=== PATIENT | male | born 1960 | race Caucasian/White ===

== ENCOUNTER 2016-08-13 09:09 | Emergency (ER) | payer BC ==
[2016-08-13 10:18] VITALS: BP 104/67
--- NOTE | 2016-08-13 10:33 | UC ---
Respiratory Complaint HPI - HPI Summary HPI Summary: History of asthma, treated for bronchitis with doxycycline and prednisone 3 weeks ago with good resolution. Yesterday had sudden onset of malaise, chills and rigors. Using albuterol, about 4 times since yesterday, last at 0400 this morning. Chest feels sore and tight, headache. Has had a flu shot, but son was dx'd with flu 2 days ago. - History of Current Complaint Chief Complaint: UCGeneralIllness Stated Complaint: FEVER,HEADACHE,BODY ACHES Time Seen by Provider: 08/13/16 10:24 Hx Obtained From: Patient, Family/Sales And Marketing Engineer - here with his . Onset/Duration: Sudden Onset, Lasting Days - 2 Timing: Constant Severity Initially: Moderate Severity Currently: Moderate Character: Cough: Nonproductive Aggravating Factors: Deep Breaths, Recumbent Position Alleviating Factors: Bronchodilator Associated Signs And Symptoms: Positive: Dyspnea, Fever, Wheezing - Risk Factors Pulmonary Embolism Risk Factors: Negative Cardiac Risk Factors: Prior [place] Pseudomonas Risk Factors: Negative Tuberculosis Risk Factors: Negative - Allergies/Home Medications Allergies/Adverse Reactions: Allergies Allergy/AdvReac Type Severity Reaction Status Date / Time No Known Allergies Allergy Verified 06/24/16 12:33 Home Medications: Home Medications Acetaminophen 1,000 mg PO Q4HR PRN 08/13/16 [History Confirmed 08/13/16] PMH/Surg Hx/FS Hx/Imm Hx Endocrine History Of: Denies: Diabetes, Thyroid Disease Cardiovascular History Of: Reports: Cardiac Disorders - [place], a-fib, Hypertension , Atrial Fibrillation - NEW DX LAST YR, ON XRELTO Denies: Pacemaker/ICD Respiratory History Of: Reports: COPD, Asthma - Surgical History Surgical History: Yes Surgery Procedure, Year, and Place: L-5/S1 22 YRS AGO=DISECTOMY CARDIAC VPIGX=1104 QUAD MDMVNY=[id number] RT KNEE SURGERY CARDIAC OBLATION= July 2015, and January-2015, June-2016. - Family History Known Family History: Negative: Cardiac Disease, Hypertension, Diabetes - Social History Occupation: Employed Full-time Lives: With Family Alcohol Use: None Substance Use Type: None Smoking Status (MU): Never Smoked Tobacco - Immunization History Most Recent Influenza Vaccination: 02/2016 Review of Systems Constitutional: Fever, Fatigue Skin: Negative Eyes: Negative ENT: Sore Throat Respiratory: Shortness Of Breath, Cough Cardiovascular: Negative Gastrointestinal: Diarrhea - loose this morning. Genitourinary: Negative Motor: Negative Neurovascular: Negative Musculoskeletal: Myalgia Neurological: Negative Psychological: Negative All Other Systems Reviewed And Are Negative: Yes Physical Exam Triage Information Reviewed: Yes Appearance: Ill-Appearing, Obese Vital Signs: Initial Vital Signs Temp 98.6 F 08/13/16 10:08 Pulse 77 08/13/16 10:08 Resp 16 08/13/16 10:08 BP 104/67 08/13/16 10:08 Pulse Ox 99 08/13/16 10:08 Vital Signs Reviewed: Yes Eyes: Positive: Conjunctiva Clear ENT: Positive: Pharynx normal, TMs normal Neck: Positive: Supple, Nontender, No Lymphadenopathy Respiratory: Positive: Decreased breath sounds, Wheezing - both lung rodriguez, prolonged expiration Cardiovascular: Positive: No Murmur Musculoskeletal Exam: Normal Neurological: Positive: Alert, Muscle Tone Normal Psychological Exam: Normal Skin Exam: Normal UC Diagnostic Evaluation - Laboratory O2 Sat by Pulse Oximetry: 99 Diagnostic Studies Comment: negative rapid flu - Radiology Xray Interpretation: No Acute Changes Radiology Interpretation Completed By: ED Physician, Radiologist Respiratory Course/Dx - Course Course Of Treatment: tamiflu given positive exposure. Prednisone in reserve in case breathing worsens. - Differential Dx/Diagnosis Differential Diagnosis/HQI/PQRI: Aspiration, Asthma, Bronchitis, Influenza Provider Diagnoses: possible influenza or other viral illness. asthma exacerbation Discharge - Discharge Plan Condition: Stable Disposition: HOME Prescriptions: Oseltamivir CAP* [Tamiflu CAP*] 75 mg PO BID #10 cap Prednisone [Deltasone] 20 mg PO BID #10 tab Patient Education Materials: Asthma (ED) Additional Instructions: Although the test is negative, you possibly have flu. Given the positive exposure, and your health history, you have been prescribed Tamiflu. You have a back up prescription for prednisone to begin if you continue to wheeze and feel short of breath. Follow up if you have worsening shortness of breath or rapid heart rate.
--- NOTE | 2016-08-13 11:26 | RAD ---
HISTORY: Cough, fever, wheeze COMPARISONS: July 12, 2015 VIEWS: 2: Frontal dual-energy and lateral views of the chest. FINDINGS: CARDIOMEDIASTINAL SILHOUETTE: The cardiomediastinal silhouette is normal. KATIE: The katie are normal. PLEURA: The costophrenic angles are sharp. No pleural abnormalities are noted. LUNG PARENCHYMA: The lungs are clear. ABDOMEN: The upper abdomen is clear. There is no subphrenic gas. BONES AND SOFT TISSUES: The patient is status post median sternotomy. Surgical clips are noted in the mediastinum OTHER: None. IMPRESSION: NO ACTIVE CARDIOPULMONARY DISEASE.
== END 2016-08-13 11:52 | disposition home or self-care (01) ==
LOC: UCCORT 09:09
DX: J44.9 Chronic obstructive pulmonary disease, unspecified (principal); J45.901 Unspecified asthma with (acute) exacerbation; B99.8 Other infectious disease; I48.2 Chronic atrial fibrillation; Z79.01 Long term (current) use of anticoagulants; R50.9 Fever, unspecified; R53.83 Other fatigue; I25.2 Old myocardial infarction; E07.9 Disorder of thyroid, unspecified; I10 Essential (primary) hypertension
CPT/HCPCS: 71020; 87502; 99212; G0463

== ENCOUNTER 2016-10-15 19:13 | Observation (INO) | payer BC ==
[2016-10-15 20:13] LABS: Hematocrit 45 % (42-52); Mean Corpuscular HGB Conc 34 g/dl (31-36); Mean Corpuscular Hemoglobin 32 pg (27-31); Mean Corpuscular Volume 96 fL (80-94); Mean Platelet Volume 8 um3 (7.4-10.4); Red Blood Count 4.66 10^6/ul (4.0-5.4); Red Cell Distribution Width 13 % (10.5-15); White Blood Count 7.4 10^3/ul (3.5-10.8)
[2016-10-15 20:14] LABS: Comments Flag Yes
[2016-10-15 20:15] LABS: Add Diff/Slide Review? Slide Review Added
[2016-10-15 20:28] LABS: Albumin 3.8 g/dL (3.2-5.2); BUN/Creatinine Ratio 14.9 (8-20); Calcium 8.7 mg/dL (8.6-10.3); EGFR African American 98.3 (>60); EGFR Non-African American 76.4 (>60); Globulin 2.4 g/dL (2-4); Potassium 4.1 mmol/L (3.5-5.0); Total Bilirubin 0.6 mg/dL (0.2-1.0); Total Protein 6.2 g/dL (6.4-8.9)
--- NOTE | 2016-10-15 21:26 | RAD ---
Indication: Vertigo. Patient on anticoagulants. CT of the brain was performed without IV contrast. Ventricular structures are midline. No midline shift is noted. The extraction spaces are unremarkable. There is no evidence of intracranial mass or hemorrhage. No other high or low density lesions are identified. Mastoid air cells and paranasal sinuses are otherwise unremarkable. IMPRESSION: No intracranial mass or hemorrhage is present.
[2016-10-15] MEDS ORDERED: NS 0.9% 1000 ML* 1,000 ML IV ONE (21:41)
[2016-10-15] MEDS ORDERED: Meclizine TAB* 12.5 MG PO ONE (21:41)
[2016-10-15] MEDS ORDERED: Aspirin TAB* 325 MG PO ONE (21:41)
[2016-10-15] MEDS ORDERED: Ondansetron INJ* 2 MG/ML VIAL IV PRN (23:13)
[2016-10-16] MEDS: Heparin VIAL(*) 5000 UNITS/ML VIAL (FIVE THOUSAND) SUBCUT SCH ×2 (05:27→13:21)
[2016-10-16] MEDS: Meclizine TAB* 12.5 MG PO SCH ×2 (05:28→13:18)
[2016-10-16 08:40] VITALS: BP 120/76
[2016-10-16] MEDS ORDERED: Metoprolol Succinate XL TAB* 25 MG PO SCH (09:00)
[2016-10-16] MEDS ORDERED: Aspirin Low Dose CHEW TAB* 81 MG PO SCH (09:00)
[2016-10-16] MEDS ORDERED: Atorvastatin* 80 MG TAB PO SCH (09:00)
[2016-10-16] MEDS ORDERED: Fluticasone NASAL SPRAY 50MCG* 16 gm SPRAY BTL BOTH NARES SCH (09:00)
--- NOTE | 2016-10-16 12:26 | HP ---
HISTORY AND PHYSICAL: DATE OF ADMISSION: 10/15/16 CHIEF COMPLAINT: Dizziness. HISTORY OF PRESENT ILLNESS: The patient is a 56-year-old gentleman, who started traveling from [place] yesterday to his home today. He stopped in [place] overnight. He said it was a normal drive with no complaints, but when he got out of his truck today at about 2 p.m., he felt somewhat dizzy. He said actually the room felt like it was spinning. He felt unstable when trying to walk. He felt his stomach was off too and felt hot and cold. He was off balance. He has had vertigo before but this was much worse. He felt quite queasy and he actually had vomiting in our parking lot . He had no chest pain, no shortness of breath, no palpitations, or headache. In the ED, the patient looked somewhat improved, but says the room was still spinning whenever he moves his head. PAST MEDICAL HISTORY: Significant for recent cardiac ablation for atrial fib, this is his third time and successful; atrial fibrillation; myocardial infarction, 2001; CABG, 4 vessels, in 2008; hyperlipidemia; asthma; hypertension ; right bundle branch block; environmental allergies. PAST SURGICAL HISTORY: Significant for CABG as noted, back surgery, knee surgery. CURRENT MEDICATIONS: Include: 1. Crestor 40 mg daily. 2. Metoprolol succinate 25 mg daily. 3. Aspirin 81 mg daily. 4. Flonase nasal spray. ALLERGIES: He has no known drug allergies. FAMILY HISTORY: Father, diabetes. SOCIAL HISTORY: No tobacco, alcohol, or recreational drug use. 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 He is . His , Whitney Nnace, is his healthcare proxy, her number is . He has 3 children. REVIEW OF SYSTEMS: A 14-point review of systems is completed with the patient. All pertinent positives and negatives are in the history of present illness, otherwise is negative. PHYSICAL EXAMINATION GENERAL: Pleasant gentleman, lying in bed, in no acute distress. VITAL SIGNS: Temperature 98 degrees, heart rate beats per minute, respiratory rate 16 breaths per minute, pulse ox 96%, blood pressure 136/83. HEENT: Normocephalic, atraumatic. Pupils equal, round, and reactive to light. Moist mucous membranes. NECK: Supple. No JVD, bruits, palpable thyroid, or lymphadenopathy. CHEST: Clear to auscultation and percussion bilaterally. CARDIOVASCULAR: S1, S2 appreciated. Regular rate and rhythm. ABDOMEN: Positive bowel sounds in all 4 quadrants. Soft, nontender, and nondistended. EXTREMITIES: No cyanosis, clubbing, or edema. +2 peripheral pulses bilaterally. NEURO: Alert and oriented x3. Moves all extremities. He had a positive Ingleside- Hallpike maneuver. SKIN: No rashes or abnormalities. DIAGNOSTIC STUDIES/LAB DATA: White count 7.4, hemoglobin 15.0, hematocrit 45, platelets 149. Sodium 139, potassium 4.1, chloride 108, CO2 26, BUN 15, creatinine 1.01, glucose 108. Troponin is 0. Brain CT shows no intracerebral mass or hemorrhage is present. EKG shows normal sinus rhythm at 64 beats per minute, normal axis, right bundle branch block. ASSESSMENT AND PLAN: 1. Dizziness/vertigo. I think this is probably benign positional vertigo especially the positive Ingleside-Hallpike maneuver; however, I will admit the patient under observation. We will get an MRI of the brain to ensure there is no evidence of cerebrovascular accident. I will give meclizine 25 q.8 hours. He may benefit from vestibular rehabilitation. 2. Coronary artery disease. This appears stable. Continue current regimen. 3. FEN. Regular diet. 4. DVT prophylaxis. Heparin subcu. 5. The patient is a full code. TIME SPENT: Over 75 minutes was spent on this H and P; more than 45 minutes of which was spent in direct [id number] contact with the patient in evaluation, physical exam, counseling, and coordination of care. CC: Dr. Keys* [id number]/[facility] #: [id number] MTDEben
--- NOTE | 2016-10-16 15:16 | RAD ---
HISTORY: Dizziness, Rule out stroke COMPARISONS: November 06, 2011, head CT dated October 15, 2016 TECHNIQUE: The following sequences were obtained of the head: Sagittal T1-weighted images, axial T2-weighted images, axial FLAIR images, axial susceptibility weighted images, axial T1-weighted images. Additionally, axial diffusion-weighted images were obtained with calculated apparent diffusion coefficients. FINDINGS: HEMORRHAGE/INFARCT: There is no hemorrhage or acute infarct. MASSES/SHIFT: There is no mass or shift. EXTRA-AXIAL SPACES/MENINGES: There are no extra-axial fluid collections. Incidentally noted is a small lipoma along the dorsal aspect of the right inferior colliculus. SULCI AND VENTRICLES: The sulci and ventricles are normal in size and position for the patient's stated age. CEREBRUM: There are no focal parenchymal abnormalities. BRAINSTEM: There are no focal parenchymal abnormalities. CEREBELLUM: There are no focal parenchymal abnormalities. The cerebellar tonsils are normal in size and position. SELLA: The sella is normal. PINEAL: The pineal region is clear. CP ANGLE/TEMPORAL BONES: The labyrinthine structures are grossly normal. VESSELS: Normal flow-voids are noted within the visualized vertebral vasculature. DIFFUSION ABNORMALITIES: There are no diffusion abnormalities. PARANASAL SINUSES/MASTOIDS: The paranasal sinuses are clear. ORBITS: The orbits are unremarkable. BONES AND SOFT TISSUE: No bone or soft tissue abnormalities are noted. OTHER: None IMPRESSION: UNREMARKABLE MRI OF THE BRAIN. NO RESTRICTED DIFFUSION TO SUGGEST ACUTE INFARCT
--- NOTE | 2016-10-17 06:58 | DS ---
DISCHARGE SUMMARY: DATE OF ADMISSION: 10/15/16 DATE OF DISCHARGE: 10/16/16 PRIMARY CARE PROVIDER: Kervin Keys MD DISCHARGING PROVIDER: CORY You SUPERVISING PHYSICIAN: Kya Lisa MD * (dictated by CORY You) PRIMARY DISCHARGE DIAGNOSIS: Vertigo. SECONDARY DISCHARGE DIAGNOSES: 1. History of atrial fibrillation, status post cardiac ablation, currently in sinus rhythm. 2. Coronary artery disease without evidence of acute coronary syndrome. 3. Hyperlipidemia. 4. Asthma without acute exacerbation. 5. Hypertension. DISCHARGE MEDICATIONS: 1. Aspirin 81 mg p.o. daily. 2. Flonase 50 mg mcg intranasally. 3. Metoprolol succinate 25 mg p.o. daily. 4. Meclizine 25 mg p.o. q.8 hours as needed for dizziness. 5. Crestor 40 mg p.o. daily. MEDICATION CHANGES: Start meclizine. HOSPITAL IMAGIN. CT of the brain, 10/15/16, shows no acute process. 2. MRI of the brain, 10/16/16, shows no acute process. 3. EKG shows a sinus rhythm with a right bundle branch block, unchanged from prior. HOSPITAL COURSE: This is a 56-year-old gentleman with history of coronary artery disease, status post acute OK in 2001, as well as a history of AFib requiring cardiac ablation x3 as well as hypertension, hyperlipidemia and asthma who presented to the emergency department with complaints of dizziness. The patient had just returned home from a very long drive from [place] and upon getting out of the car he was severely dizzy. His gait was impaired, he was nauseous and vomited once. He has had a prior episode of vertigo, but felt that the symptoms were more severe and prompted him to seek medical attention. Initial labs are fairly unremarkable. CBC within normal limits and comprehensive metabolic panel showed no acute abnormalities. Initial troponin, subsequent troponin both negative at 0.00. EKG demonstrated a sinus rhythm with a right bundle branch block. The patient was treated for suspected vertigo with meclizine and symptoms improved overnight. He underwent an MRI of his brain to evaluate for organic pathology that may be influencing his symptoms. MRI showed no acute pathology. DISPOSITION: The patient is being discharged to home with p.r.n. meclizine. Recommend resuming remainder of his home medications and close follow up with his primary care provider. CORY YOU CC: Kervin Keys MD * [id number]/[facility] #: [id number] MTDD
--- NOTE | 2016-10-17 08:32 | ED ---
I, Oh,Sosadiun, scribed for Lazarus Torres MD on 10/15/16 at 2051 . Dizziness - HPI Summary HPI Summary: This 56 y/o male presents to ED for acute "spinning" dizziness since 1400 PM this afternoon. Pt has been driving from [place] for the last 2 days, and was just getting out of the vehicle at the time of onset. Pt n/v when he got out of his vehicle. present at bedside reports pt has been sweating a lot yesterday in 90 F heat in [place]. Movement makes the dizziness worse. Negative CP, jaw pain, shoulder pain, neck pain, SOB, ear pain, or tinnitus. PMHx includes known vertigo, SVT, [place] s/p quadruple bypass at [place] in 2008, and a-fib s/p ablation. Pt states that this episode is more intense than his previous "dizzy spells". Primary care involves Dr. Bellamy as his regional property manager. Last stress test was done 3 weeks ago. Pt recently discontinued Xarelto about 2 weeks ago. - History Of Current Complaint Chief Complaint: EDDizziness Stated Complaint: DIZZINESS,VOMITING Time Seen by Provider: 10/15/16 19:51 Hx Obtained From: Patient, Family/Tick Sewer - present at bedside, Medical Records Timing: Constant Character: Room Spinning Aggravating Factor(s): Position Change, Change In Head Position Alleviating Factor(s): Nothing Associated Signs And Symptoms: Positive: Nausea, Vomiting. Negative: Tinnitus, Chest Pain, SOB, Fever - Allergies/Home Medications Allergies/Adverse Reactions: Allergies Allergy/AdvReac Type Severity Reaction Status Date / Time No Known Allergies Allergy Verified 06/24/16 12:33 Home Medications: Home Medications Aspirin 81 MG TAB 81 mg DAILY 10/15/16 [History Confirmed 10/15/16] Flonase NASAL SPRAY 50MCG* INTRANASAL DAILY 10/15/16 [History] Metoprolol Succinate XL TAB* 25 mg PO DAILY 10/15/16 [History Confirmed 10/15/16 ] PMH/Surg Hx/FS Hx/Imm Hx Endocrine/Hematology History: Denies: Hx Diabetes, Hx Thyroid Disease Cardiovascular History: Reports: Hx Atrial Fibrillation, Hx Hypertension Denies: Hx Pacemaker/ICD Respiratory History: Reports: Hx Asthma, Hx Chronic Obstructive Pulmonary Disease (COPD) Sensory History: Denies: Hx Hearing Aid Psychiatric History: Denies: Hx Panic Disorder - Surgical History Surgery Procedure, Year, and Place: L-5/S1 22 YRS AGO=DISECTOMY CARDIAC HCUBS=6553 QUAD NIDWRM=[id number] RT KNEE SURGERY CARDIAC OBLATION= July 2015, and January-2016, June-2016. - Immunization History Date of Tetanus Vaccine: Unk Date of Influenza Vaccine: 03/09 Infectious Disease History: No Infectious Disease History: Denies: Traveled Outside the [place] in Last 30 Days - Family History Known Family History: Negative: Cardiac Disease, Hypertension, Diabetes - Social History Alcohol Use: None Hx Substance Use: No Substance Use Type: Reports: None Hx Tobacco Use: No Smoking Status (MU): Never Smoked Tobacco Review of Systems Negative: Fever Negative: Other Positive: Other - "itchy nose and throat" secondary to seasonal allergies. Negative: Sore Throat Negative: Chest Pain Negative: Shortness Of Breath Positive: Vomiting, Nausea Negative: dysuria, hematuria Negative: Myalgia, Edema Neurological: Other - Positive for dizziness Negative: Numbness All Other Systems Reviewed And Are Negative: Yes Physical Exam - Summary Physical Exam Summary: Constitutional: Well-developed, Well-nourished, Alert. (-) Distressed Skin: Warm, Dry HENT: Eyes: Conjunctiva normal Neck: Musculoskeletal ROM normal neck. (-) JVD, (-) Stridor, (-) Tracheal deviation Cardio: Rhythm regular, rate normal, Heart sounds normal; Intact distal pulses; The pedal pulses are 2+ and symmetric. Radial pulses are 2+ and symmetric. (-) Murmur Pulmonary/Chest wall: Effort normal. (-) Respiratory distress, (-) Wheezes, (-) Rales Abd: Soft. (-) Tenderness, (-) Distension, (-) Guarding, (-) Rebound Musculoskeletal: (-) Edema Lymph: (-) Cervical adenopathy Neuro: Alert, Oriented x3, Strength normal, Cranial nerves II-XII are grossly intact. (+) Kallie-Hallpike bilat elicited bilat. (+) Rhomberg test. Unsteady gait. DTR unable to be elicited due to pt's cooperation. Psych: Mood and affect Normal Triage Information Reviewed: Yes Vital Signs On Initial Exam: Initial Vitals Temp Pulse Resp BP Pulse Ox 96.5 F 68 18 136/88 99 10/15/16 19:17 10/15/16 19:17 10/15/16 19:17 10/15/16 19:17 10/15/16 19:17 Vital Signs Reviewed: Yes - Barbara Coma Scale Coma Scale Total: 15 Diagnostics - Vital Signs Vital Signs Temp Pulse Resp BP Pulse Ox 10/15/16 20:09 96.5 F 66 16 150/87 96 10/15/16 19:17 96.5 F 68 18 136/88 99 - Laboratory Lab Results: Lab Results 10/15/16 10/15/16 10/15/16 Range/Units 20:02 20:02 20:02 WBC 7.4 (3.5-10.8) 10^3/ul RBC 4.66 (4.0-5.4) 10^6/ul Hgb 15.0 (14.0-18.0) g/dl Hct 45 (42-52) % MCV 96 H (80-94) fL MCH 32 H (27-31) pg MCHC 34 (31-36) g/dl RDW 13 (10.5-15) % Plt Count 149 L (150-450) 10^3/ul MPV 8 (7.4-10.4) um3 Neut % (Auto) 76.8 (38-83) % Lymph % (Auto) 10.2 L (25-47) % Spink % (Auto) 8.5 (1-9) % Eos % (Auto) 1.9 (0-6) % Baso % (Auto) 2.6 H (0-2) % Absolute Neuts (auto) 5.7 (1.5-7.7) 10^3/ul Absolute Lymphs (auto) 0.8 L (1.0-4.8) 10^3/ul Absolute Monos (auto) 0.6 (0-0.8) 10^3/ul Absolute Eos (auto) 0.1 (0-0.6) 10^3/ul Absolute Basos (auto) 0.2 (0-0.2) 10^3/ul Absolute Nucleated RBC 0 10^3/ul Nucleated RBC % 0 Sodium 139 (133-145) mmol/L Potassium 4.1 (3.5-5.0) mmol/L Chloride 108 (101-111) mmol/L Carbon Dioxide 26 (22-32) mmol/L Anion Gap 5 (2-11) mmol/L BUN 15 (6-24) mg/dL Creatinine 1.01 (0.67-1.17) mg/dL Est GFR ( Amer) 98.3 (>60) Est GFR (Non-Af Amer) 76.4 (>60) BUN/Creatinine Ratio 14.9 (8-20) Glucose 108 H (70-100) mg/dL Lactic Acid 0.8 (0.5-2.0) mmol/L Calcium 8.7 (8.6-10.3) mg/dL Total Bilirubin 0.60 (0.2-1.0) mg/dL AST 19 (13-39) U/L ALT 15 (7-52) U/L Alkaline Phosphatase 39 (34-104) U/L Troponin I 0.00 (<0.04) ng/mL Total Protein 6.2 L (6.4-8.9) g/dL Albumin 3.8 (3.2-5.2) g/dL Globulin 2.4 (2-4) g/dL Albumin/Globulin Ratio 1.6 (1-3) Result Diagrams: 10/15/16 20:02 10/15/16 20:02 Lab Statement: Any lab studies that have been ordered have been reviewed, and results considered in the medical decision making process. - CT Brain CT Interpretation: No Acute Changes CT Interpretation Completed By: Radiologist - EKG 1929 Cardiac Rate: NL - 64 bpm EKG Rhythm: Sinus Rhythm EKG Interpretation: RBBB Dizzy Course/Dx - Course Assessment/Plan: This 56 y/o male presents to ED for "spinning" dizziness since 1400 PM today. Positive n/v. Dizziness is worse with head movement and position change. Exam is non focal. PMHx includes cardiac dz such as [place] s/p quadruple bypass and afib. Pt recently discontined Xarelto 2 weeks ago. PMHx also includes vertigo, but pt states that this episode is different in a way that it is more severe than his usual episodes of dizziness. Brain CT is negative. Physical examination is noted nonfocal with bilat Min[place]-Hallpike examl, positive Rhomberg exam, and unsteady gait. Dr. Bermudez is consulted and recommends ASA, meclizine, admission, and MRI in morning. CVA is unlikely but is not r/o. Dr. Bermudez recommends admission, ASA, meclizine, and MRI in morning. - Diagnoses Provider Diagnoses: Vertigo - Provider Notifications Discussed Care Of Patient with: Dr. Bermudez (Neurologist) at [address] Bermudez (Neurologist) at [address] Romero (Hospitalist) at 2142 PM Instructed by Provider To: Admit As Inpatient Discharge - Discharge Plan Condition: Stable Disposition: ADMITTED TO [facility] documentation as recorded by the Charli rios Soohyun accurately reflects the service I personally performed and the decisions made by , Lazarus Torres MD.
== END 2016-10-16 17:12 | disposition home or self-care (01) ==
LOC: ED 19:13 → MEDTELE 23:21
PROVIDERS: ADMIT Internal Medicine; ATTEND Internal Medicine
DX: R42 Dizziness and giddiness (principal); I48.91 Unspecified atrial fibrillation; I25.10 Atherosclerotic heart disease of native coronary artery without angina pectoris; I10 Essential (primary) hypertension; E78.5 Hyperlipidemia, unspecified; J45.909 Unspecified asthma, uncomplicated; Z95.1 Presence of aortocoronary bypass graft; Z79.82 Long term (current) use of aspirin; Z79.899 Other long term (current) drug therapy; I25.2 Old myocardial infarction; I45.10 Unspecified right bundle-branch block
CPT/HCPCS: 36415; 70450; 70551; 80053; 83605; 84484; 85025; 87641; 93005; 96360; 96372; 99283; A9270-GY; G0378; J1644

== ENCOUNTER 2019-09-11 06:25 | Inpatient (IN) | payer BC ==
--- NOTE | 2019-09-04 11:20 | HP ---
AMENDED REPORT NOW INCLUDES DESIGNATED COSIGNER HISTORY AND PHYSICAL: DATE OF SURGERY: 09/11/19 DATE OF OFFICE VISIT: 09/01/19 SURGEON: Freda Andre MD * (DICTATED BY CORY LUU) PROCEDURE: Right total knee arthroplasty. CHIEF COMPLAINT: Right knee pain. HISTORY OF PRESENT ILLNESS: Mr. Nance is a 59-year-old gentleman with end- stage osteoarthritis of the right knee who failed conservative treatment and elected to proceed with a right total knee arthroplasty. PAST MEDICAL HISTORY: 1. Hypertension. 2. Coronary artery disease. 3. AFib. 4. High cholesterol. 5. Asthma. 6. History of an NM. PAST SURGICAL HISTORY: 1. Cardiac ablation x3. 2. CABG, stent placement. 3. Carpal tunnel release. 4. Right knee scope. 5. L5-S1 diskectomy. CURRENT MEDICATIONS: 1. Metoprolol 25 mg daily. 2. Rosuvastatin calcium 40 mg a day. 3. Cardia 120 mg daily. 4. Zetia 10 mg a day. 5. Aspirin 325 daily. 6. CoQ10. 7. Flonase twice a day as needed. 8. Advair Diskus as needed. ALLERGIES: No known drug allergies. FAMILY HISTORY: Denies. SOCIAL HISTORY: This is a 59-year-old gentleman who lives with his . He does not smoke. REVIEW OF SYSTEMS: A complete 14-point review of systems was reviewed with the patient and is all negative and noncontributory. He denies a history of DVT, PE , hepatitis, HIV, or anesthesia problems. PHYSICAL EXAMINATION GENERAL: He is well developed, well nourished, in no acute distress. VITAL SIGNS: He stands 68 inches tall, weighs 224 pounds, his blood pressure is 126/70, his heart rate is 72. HEENT: Normocephalic and atraumatic. NECK: Supple. No palpable lymph nodes. PULMONARY: The lungs are clear to auscultation bilaterally. CARDIO: Regular rate and rhythm. Strong S1, S2. ABDOMEN: Soft, nontender, and nondistended. NEUROLOGIC: He is alert and oriented x3. MUSCULOSKELETAL: Right lower extremity, the skin is intact. There is open wounds or abrasions. There is a moderate effusion of the right knee joint. Some tenderness along the medial and lateral joint line. There is a 15 degree valgus deformity. Range of motion is 15 to 110 degrees of flexion with patellofemoral crepitus. He is able to dorsiflex and plantarflex. He has 2+ dorsalis pedis pulse and intact sensation. ASSESSMENT AND PLAN: Mr. Nance is a 59-year-old gentleman with end- stage osteoarthritis of the right knee. He has failed conservative treatment and elected to proceed with a right total knee arthroplasty. The surgery is scheduled for 09/11/[address] Andre discussed the risks and benefits of the surgery at today's visit and all of his questions were answered. He will follow up with Dr. Andre 2 weeks after the surgery. CORY LUU [id number]/[facility] #: [id number] MTDD
[~2019-09-11 06:25] MED LIST: Buffered Lidocaine 1% SYRIN* 1 ML/SYRINGE INTRADERM ONE; Dexamethasone IV* 4 MG/ML 1 ML (4 MG) IV SLOW PU ONE; Famotidine IV* 10 MG/ML 2 ML (20 mg) IV ONE; Gabapentin CAP(*) 300 MG PO ONE; Lactated Ringers 1000 ML Bag* 1,000 ML IV SCH; celeCOXIB CAP* 200 MG PO ONE
[2019-09-11] MEDS ORDERED: Gabapentin CAP(*) 300 MG ONE (06:47)
[2019-09-11] MEDS ORDERED: Dexamethasone IV* 4 MG/ML 1 ML (4 MG) ONE (06:47)
[2019-09-11] MEDS ORDERED: celeCOXIB CAP* 200 MG ONE (06:48)
[2019-09-11] MEDS ORDERED: ceFAZolin 2 GM PREMIX in ORs 2 GM/50 ML BAG ONE (06:48)
[2019-09-11] MEDS ORDERED: Famotidine IV* 10 MG/ML 2 ML (20 mg) ONE (06:49)
[2019-09-11] MEDS ORDERED: fentaNYL* 50 MCG/ML 2 ML VIAL (100 MCG VIAL) ONE (07:08)
[2019-09-11] MEDS ORDERED: Midazolam* 1 MG/ML 5 ML VIAL (5 MG) ONE (07:08)
[2019-09-11] MEDS ORDERED: ROPIVACAINE 5 MG/ML 30 ML BTL (0.5%) ONE ×2 (07:09→07:23)
[2019-09-11] MEDS ORDERED: Naloxone* 0.4 MG/ML 1 ML VIAL IV PRN (07:56)
[2019-09-11] MEDS ORDERED: DiMENhydriNATE IV* 50 MG/ML VIAL IV PUSH PRN (07:56)
[2019-09-11] MEDS ORDERED: HYDROcodone/ACETAMIN 5-325 MG* 1 TAB PO PRN (07:56)
[2019-09-11] MEDS ORDERED: oxyCODONE/Acetamin 5/325 MG* TAB PO PRN (07:56)
[2019-09-11] MEDS ORDERED: fentaNYL* 50 MCG/ML 2 ML VIAL (100 MCG VIAL) IV PRN (07:56)
[2019-09-11] MEDS ORDERED: Bupivacaine 0.5% SDV PF* 30ML VIAL ONE (08:14)
[2019-09-11] MEDS ORDERED: Lidocaine 2% PF * 5 ML VIAL ONE (08:30)
[2019-09-11] MEDS ORDERED: Propofol* 500 MG/50 ML BTL ONE (08:30)
[2019-09-11] MEDS ORDERED: Ondansetron INJ* 2 MG/ML VIAL ONE (10:36)
[2019-09-11] MEDS ORDERED: Ondansetron ODT TAB* 4 MG PO PRN (11:11)
[2019-09-11] MEDS ORDERED: diPHENhydraMINE PO* 25 MG PO PRN (11:11)
[2019-09-11] MEDS ORDERED: Cyclobenzaprine TAB* 10 MG PO PRN (11:11)
[2019-09-11] MEDS ORDERED: Morphine INJ* 2 MG/ML 1 ML SYRINGE (TWO MG - NEW SYRINGE VERSION) IV PRN (11:11)
[2019-09-11] MEDS ORDERED: diPHENhydraMINE IV* 50 MG/ML 1 ml VIAL (BENADRYL) IV PRN (11:11)
[2019-09-11] MEDS ORDERED: Ondansetron TAB* 4 MG PO PRN (11:11)
[2019-09-11] MEDS ORDERED: Magnesium Hydroxide LIQ* 30 ML UDC PO PRN (11:11)
[2019-09-11] MEDS ORDERED: Ondansetron INJ* 2 MG/ML VIAL IV PRN (11:11)
[2019-09-11] MEDS ORDERED: Polyethylene Glycol 3350* 17 GM PACKET PO PRN (11:11)
[2019-09-11] MEDS ORDERED: traMADol TAB* 50 MG PO PRN (11:11)
[2019-09-11] MEDS ORDERED: Fluticasone-Salmeterol 250-50* DISKUS INH PRN (11:15)
[2019-09-11] MEDS: Lactated Ringers 1000 ML Bag* 1,000 ML IV SCH ×2 (13:00→23:14)
[2019-09-11] MEDS: oxyCODONE/Acetamin 5/325 MG* TAB PO PRN ×2 (14:40→19:04)
[2019-09-11] MEDS: Acetaminophen TAB* 325 MG PO SCH ×2 (14:41→22:05)
--- NOTE | 2019-09-11 16:02 | PN ---
Progress Note - Progress Note Date of Service: 09/11/19 Note: resting comfortably, OOB to chair, no significant complaints of pain, 2+DP pulse , able to DF/PF, intact sensation
[2019-09-11] MEDS: ceFAZolin 1 GM ADVAN(*) 1 GM in NS 0.9% 50 ML* 50 ML IVPB SCH (16:54)
--- NOTE | 2019-09-11 17:09 | CONS ---
CC: Dr. Keys; Dr. Bellamy * CONSULTATION REPORT: DATE OF CONSULT: 09/11/19 PRIMARY CARE PROVIDER: Dr. Keys. CLINICAL TRIAL HEAD: Dr. Bellamy. REQUESTING PROVIDER: Dr. Andre. REASON FOR CONSULT: Medical co-management. HISTORY OF PRESENT ILLNESS: Mr. Nance is a 59-year-old male who has a history of hypertension, coronary artery disease, atrial fibrillation, hyperlipidemia, and asthma, who underwent elective right total knee arthroplasty with Dr. Andre today. The patient is seen in his room. He states overall he is doing quite well. He states that he feels excellent. He does note that he is having some moderate discomfort in the right knee at this point. He has been up and he has worked with physical therapy already. He describes discomfort in the knee as being a tightness or a pressure sensation. He has no other complaints at this time. He states that he has had no nausea, vomiting, and has tolerated eating. PAST MEDICAL HISTORY: 1. Hypertension. 2. Coronary artery disease. 3. Atrial fibrillation. 4. Hyperlipidemia. 5. Asthma. PAST SURGICAL HISTORY: 1. AFib ablation x3. 2. CABG. 3. Right carpal tunnel release. 4. Right knee arthroscopy. 5. L5-S1 diskectomy. 6. Left hand surgery. MEDICATIONS: 1. Metoprolol succinate 25 mg p.o. q.p.m. 2. Aspirin 325 mg p.o. q.p.m. 3. Diltiazem 240 mg p.o. q.p.m. 4. Zetia 10 mg p.o. q.p.m. 5. Flonase 2 squirts to each nostril daily p.r.n. allergies. 6. Advair 250/50 one puff inhaled daily p.r.n. shortness of breath. 7. Crestor 40 mg p.o. q.p.m. 8. CoQ10 200 mg p.o. q.p.m. ALLERGIES: No known drug allergies. FAMILY HISTORY: Mom is living, she is 79 and healthy. Dad is also living, he is also 79 and healthy. SOCIAL HISTORY: The patient is . He lives with his . He does not smoke. He drinks alcohol very rarely. He is a professor at [employer]. REVIEW OF SYSTEMS: A complete 11-system review of systems is obtained. Pertinent positives and negatives are as per HPI and otherwise negative. PHYSICAL EXAM: Blood pressure 124/86, pulse 71, respirations 16, temp 98.1, O2 sat 98% on room air. General: The patient is a well-developed, middle-aged male seen sitting up in a chair, in no acute distress. HEENT: Pupils are equal. Extraocular muscles are intact. Oropharynx is clear and moist. Cardiac : Normal S1, S2. Regular rate and rhythm. I do not appreciate any murmurs. There is no lower extremity edema. Pulmonary: Lungs are clear to auscultation bilaterally. Abdomen: Bowel sounds are present. Abdomen is soft, nontender, nondistended. Musculoskeletal: The right knee is in a postop dressing with Cryo unit in place. Skin: Visible areas of skin are warm, dry, and without rash. Neuro: Cranial nerves II through XII are grossly intact. Sensation is intact to light touch throughout. Strength is normal in the upper extremities. Lower extremity strength is not tested at this time. Psych: The patient is alert. He is oriented x3. Affect appears appropriate. ASSESSMENT AND PLAN: Mr. Nance is a 59-year-old male who has a history of hypertension, coronary artery disease, atrial fibrillation, hyperlipidemia, and asthma, who is seen today for medical co-management consultation. 1. Status post right total knee arthroplasty. Management of pain and DVT prophylaxis as per Orthopedics. 2. Atrial fibrillation. The patient sounds to be in sinus rhythm at this time. He will continue on metoprolol XL 25 mg p.o. q.p.m. and diltiazem 240 mg p.o. q.p.m. At baseline, he utilizes full-dose aspirin as stroke prevention. He is being started on Eliquis 2.5 mg p.o. b.i.d. This can be continued, which will act as full anticoagulation and stroke prevention. He should be restarted on a baby aspirin when okayed by Orthopedics. 3. Coronary artery disease. There are no complaints of chest pain. Continue metoprolol, Zetia, and statin. As above, the patient should be started on baby aspirin while on Eliquis for DVT prophylaxis, then he can go back to his aspirin 325 mg daily when the Eliquis dosing is complete. 4. Hypertension. BP is under good control. Continue diltiazem and metoprolol. 5. Hyperlipidemia. Continue Zetia and Lipitor. 6. Asthma. There are no signs of wheezing or asthma exacerbation at this time. We will monitor for any wheezing and order inhalers as needed. 7. DVT prophylaxis: To be started on Eliquis tomorrow morning. 8. The patient is a full code. TIME SPENT: Forty-five minutes was spent on this consultation. [id number]/CPS #: [id number] GISSELLE
[2019-09-11] MEDS ORDERED: Ezetimibe TAB* 10 MG PO SCH (18:00)
[2019-09-11] MEDS ORDERED: Metoprolol Succinate XL TAB* 25 MG PO SCH (18:00)
[2019-09-11] MEDS ORDERED: ROSUVASTATIN 20 MG PO SCH (18:00)
[2019-09-11] MEDS ORDERED: Diltiazem CD CAP* 240 MG PO SCH (18:00)
--- NOTE | 2019-09-11 18:22 | OP ---
Operative Report - Blank - Operative Report Date of Operation: 09/11/19 Note: NIRANJAN ARMENTA 1960 Date of Surgery: 09/11/19 Freda Andre MD Cut Off Machine Unloader: Ishaan RAY did help throughout the procedure with preparation of the knee, wound retraction, manipulation of the knee, and wound closure. Anesthesiologist: Dr. Stoner Anesthesia Type: Spinal Preoperative Diagnosis: Right severe degenerative osteoarthritis of the knee Postoperative Diagnosis: As above Procedure Performed: Right Total Knee Arthroplasty Tourniquet time: 62 minutes Complications: None Specimen: Bone and cartilage from the right knee joint sent to pathology. Hardware Used: Cemented Nam [employer] Nephew total knee hardware was used - For the femur a size 6 right oxinium legion posterior stabilized femoral component, for the tibia a size 6 right valentín II tibial baseplate, for the insert a size 9mm 5-6 posterior stabilized articular polyethylene insert, and for the patella a size 35 3-peg all poly patella. The WiseStamp robotic navigation system was used. Brief History/Indication: NIRANJAN ARMENTA was known in clinic and had a history of severe right knee pain and swelling. He failed conservative treatment with anti-inflammatories, pain pills, intra-articular injections and physical therapy. He elected to undergo right total knee arthroplasty due to continued pain and decreased quality of life. Radiographs showed severe end stage osteoarthritis of the knee with bone on bone contact. Informed consent was obtained from the patient. He understood the risks of surgery included but were not limited to: bleeding, infection, damage to nearby structures, intraoperative fracture, nerve palsy, failure of the hardware, early loosening, knee stiffness or loss of motion, anesthesia complications, stroke, heart attack , blood clot and . He requested the Navio for the surgery and accepted the additional risks of pin site infection and fracture. He wished to proceed. Intra-Operative Findings: Intraoperatively the patient was noted to have severe loss of cartilage in all 3 compartments of the knee. Description of the Procedure: NIRANJAN ARMENTA was identified in the preanesthesia unit. His right knee was marked as the correct operative side. Informed consent was signed and placed in the chart. The patient was taken to the operating room and placed under anesthesia without complication. A lambert catheter was placed. A tourniquet was placed on the right thigh. The right lower extremity was prepped and draped in the usual sterile fashion. Preoperative time-out was made to correctly identify the patient, side and site. Appropriate intraoperative antibiotics were given within one hour of incision. Tourniquet was inflated. A midline incision was made and carried sharply down to the extensor mechanism. A new 10 blade was used to make a standard medial parapatellar arthrotomy. The patella was subluxed laterally. Electrocautery was used to dissect soft tissue off the superomedial tibia to the midsagittal plane. The knee was flexed up. The anterior horn of the lateral meniscus and the ACL/PCL were sharply incised. The two checkpoint screws were placed and the four pins were placed. The arrays were attached and the patient's anatomy was mapped using the WiseStamp robotic system. The hardware size and placement was chosen using the WiseStamp system. The robotic art was used to make the distal femoral cut. The distal femur was sized to a size 6. The size 6 multi-cutting jig was pinned on the distal femur. The oscillating saw was used to make the appropriate 4 chamfer cuts. Next the PCL was completely released. The extramedullary tibial cutting guide was pinned on the proximal tibia using the WiseStamp angular cutting guide. The oscillating saw was used to make the proximal tibial cut perpendicular to the mechanical axis of the tibia. The bone was carefully removed. The knee was brought out into full extension. The spacer block was placed and had excellent fit with the knee in full extension. The medial and lateral ligaments were well balanced. The flexion and extension gaps were well balanced. The knee was flexed up. Lamina document scanner was placed both medially and laterally. Any remaining meniscus was removed with electrocautery. Curved osteotome was used to remove any posterior osteophytes. The tibial tray and drop monalisa were placed and confirmed a satisfactory tibial cut. The size 6 right femoral trial was impacted onto the distal femur. This trial had excellent fit and stability. The box for the posterior stabilized implant was prepared using a box cut osteotome and a reamer. Next a tibial tray trial and 9 mm insert trial was placed. The knee was taken through a range of motion and had full extension to 130 degrees of flexion. Patellofemoral tracking was satisfactory. The final Navio measurements were obtained. The screws and pins were all removed. The patella was inverted and sized to a size 35. Three peg holes were drilled through the size 35 drill guide. The trial patella was placed and the knee was taken through a range of motion. There was satisfactory patellofemoral tracking. All trials were removed. The tibia was subluxed anteriorly and sized to a size 6. The proximal tibial was prepared with a size 6 keel punch. All bony cut surfaces were irrigated with sterile saline and dried. Final implants were cemented into place starting with the tibia, followed by the femur, and last the patella. A 9 mm insert trial was placed and the knee was brought into full extension. Tourniquet was turned down and the knee was copiously irrigated with sterile saline. Electrocautery was used to obtain meticulous hemostasis. Once the cement had fully cured, the insert trial was removed. Any excess cement was removed from around the hardware and capsule. Final insert chosen was a 9 mm posterior stabilized Valentín II articular insert size 5-6. Stability of the insert was checked and noted to be stable. The extensor mechanism was closed using number 1 vicryls. The rest of the incision was closed in a layered fashion using 0 and 2-0 vicryls. The skin was closed using 3-0 nylon suture. Sterile xeroform, 4x4s and webril were used to cover the incision. Georgi wrap and cold pack were used to cover the dressings. The patients anesthesia was reversed without difficulty. He was taken to the PACU in stable condition. Intended weight-bearing will be as tolerated.
[2019-09-11] MEDS: Magnesium Hydroxide LIQ* 30 ML UDC PO SCH (20:46)
[2019-09-11] MEDS: Docusate CAP* 100 MG PO SCH (20:46)
[2019-09-11] MEDS: oxyCODONE TAB* 5 MG TAB PO PRN (21:44)
[2019-09-12] MEDS: oxyCODONE/Acetamin 5/325 MG* TAB PO PRN ×4 (00:01→14:32)
[2019-09-12] MEDS: ceFAZolin 1 GM ADVAN(*) 1 GM in NS 0.9% 50 ML* 50 ML IVPB SCH ×2 (00:54→09:14)
[2019-09-12] MEDS: oxyCODONE TAB* 5 MG TAB PO PRN ×3 (02:08→11:19)
[2019-09-12 05:26] LABS: Hematocrit 36 % (42-52); Hemoglobin 12.4 g/dL (14.0-18.0); Mean Platelet Volume 7.8 fL (7.4-10.4); Platelet Count 156 10^3/uL (150-450)
[2019-09-12 05:43] LABS: Calcium 7.7 mg/dL (8.6-10.3); EGFR African American 99.4 (>60); EGFR Non-African American 82.1 (>60); Potassium 4.5 mmol/L (3.5-5.0)
[2019-09-12] MEDS: Acetaminophen TAB* 325 MG PO SCH ×2 (06:00→14:12)
[2019-09-12] MEDS: Docusate CAP* 100 MG PO SCH (08:15)
[2019-09-12] MEDS: Magnesium Hydroxide LIQ* 30 ML UDC PO SCH (08:16)
[2019-09-12] MEDS ORDERED: Apixaban* 2.5 MG TAB PO SCH (09:00)
[2019-09-12] MEDS ORDERED: Vitamin THERAPEUTIC TAB PO SCH (09:00)
--- NOTE | 2019-09-12 11:21 | PN ---
Progress Note - Progress Note Date of Service: 09/12/19 SOAP: Subjective: [Pt was seen this morning lying in bed. He states that he is doing well. Pain is well managed. Doing very well with PT. The pt denies any chest pain, SOB, nausea or vomiting. ] Objective: [General: Pt is alert and oriented. NAD MSK, RLE: Dressing is c/d/i. Dressing changed and incision is c/d/i. +df/pf. NVI , calf is soft and non tender. 2+ DP pulse. Vital Signs Temp 97.9 F 09/12/19 07:55 Pulse 75 09/12/19 07:55 Resp 18 09/12/19 08:20 BP 120/69 09/12/19 07:55 Pulse Ox 94 09/12/19 07:55 Intake & Output 09/11/19 09/12/19 09/12/19 18:59 06:59 18:59 Intake Total 1100 1015 1870 Output Total 775 950 210 Balance 221 27 5892 Intake: IV Fluids 1100 1760 LR 1100 1760 IVPB 55 110 ABX - CEFAZOLIN 55 110 Oral 960 Output: Urine 25 950 210 James 750 Other: # Bowel Movements 0 ] Assessment: [POD 1 RTKA] Plan: [Continue with PT, he would like to have the afternoon PT session Continue with eliquis 2.5 mg bid x 30 days Percocet for pain DC this afternoon. ]
--- NOTE | 2019-09-12 11:21 | DS ---
Orthopedic Discharge Summary - Discharge Summary Date of Admission:09/11/19 Date of Discharge: 09/12/2019 Date of Surgery: 09/11/2019 Attending Orthopedic Provider: Dr. Ander Pre-operative Diagnosis: right knee osteoarthritis Operative Procedure: Right total knee arthroplasty Disposition of Patient:Home Home care vs Outpatient services: Outpatient Condition of Patient: Good Pain medication RX at discharge: Percocet 5/325, Cyclobenzaprine 10 mg for spasms DVT prophylaxis RX at discharge: Eliquis 2.5 mg bid History: NIRANJAN ARMENTA is a 59 year old M with years of increasingly severe right knee pain. Patient has failed conservative management and has elected to undergo a right total knee replacement Hospital Course: NIRANJAN was admitted to [facility] on 09/11/19. Patient underwent a right total knee replacement without complication followed by a brief recovery in PACU and transfer to the Short Stay Surgical Unit in stable condition. Our hospitalist service, physical therapy and occupational therapy also participated in this patients care. Post-op day 1: patient was alert and in no acute distress. Dressing was clean, dry and intact. Operative extremity dorsiflexion and plantarflexion intact, sensation intact to light touch distally, DP2+.Dressing was changed, incision was clean, dry and intact. Patient was deemed to be medically and orthopedically stable for discharge. Physical therapy goals were met. Home Medications Medication Instructions Recorded Confirmed Type Rosuvastatin (NF) Crestor (NF) 40 mg PO QPM 07/12/15 09/11/19 History Aspirin 81 MG TAB 325 mg PO QPM 10/15/16 09/11/19 History Flonase NASAL SPRAY 50MCG* 50 mcg INTRANASAL DAILY PRN 10/15/16 09/11/19 History Metoprolol Succinate XL TAB* 25 mg PO QPM 10/15/16 09/11/19 History Ezetimibe TAB* [Zetia TAB*] 10 mg PO QPM 09/01/19 09/11/19 History Fluticasone-Salmeterol 250-50* 1 puff INH DAILY PRN 09/01/19 09/11/19 History [Advair Diskus 250-50*] Ubidecarenone [Co Q-10] 200 mg PO QPM 09/01/19 09/11/19 History dilTIAZem HCl [Cartia Xt] 240 mg PO QPM 09/01/19 09/11/19 History Discharge Instructions following Orthopedic Surgery: Activity: * Weight Bearing as tolerated * Continue physical therapy and occupational therapy exercises as shown * If you have elected to have home physical therapy, continue therapy exercises at home. If you have elected outpatient physical therapy, please start therapy as an outpatient right away. Wound care: * OK to shower on post-op day 3, no bathing, swimming, or submerging wound. * Use gentle soap, pat dry. Cover with gauze, BARBARA wrap or tape. * If you elected to have a visiting home nurse, they will perform wound checks. Call Orthopedic office for: * Increased drainage * Redness * Increased pain * Fever Go to ER with shortness of breath or chest pain. Diet: * Regular diet * Increase fluids and fiber to prevent constipation. * Continue to use stool softeners, call office if no bowel motion within 48 hours. Medications See Home Medication List in your packet for medications that you should take after discharge. DVT Prophylaxis: Eliquis Dosin.5 mg, 1 tab every 12 hours x 30 days Pain Control: Cyclobenzaprine 10 mg, 1 tab every 6 hours as needed for muscle spasms Percocet 5/325 mg 1 tab for moderate pain and 2 tabs for severe pain by mouth every 4 hours as needed. Maximum of 10 tabs per day. Hold for sedation , wean off as soon as pain allows Please note that Percocet contains Tylenol (acetaminophen). Maximum daily dose of Tylenol is 4000 mg from all sources. Antibiotics are required prior to any dental work. FOLLOW UP: Follow up with Dr. Andre Within 10 - 14 days, call for appointment Please call our office with any questions or concerns ([phone])
[2019-09-12 11:27] VITALS: BP 119/76
== END 2019-09-12 15:03 | disposition home or self-care (01) | DRG 302 ==
LOC: AA 06:25 → SSU 11:11
PROVIDERS: ADMIT Orthopaedic Surgery Adult Reconstructive Orthopaedic Surgery; ATTEND Orthopaedic Surgery Adult Reconstructive Orthopaedic Surgery
PROC: 8E0Y0CZ Robotic Assisted Procedure of Lower Extremity, Open Approach (ICD-10-PCS; 2019-09-11)
PROC: 0SRC0J9 Replacement of Right Knee Joint with Synthetic Substitute, Cemented, Open Approach (ICD-10-PCS; principal; 2019-09-11 08:00)
DX: M17.11 Unilateral primary osteoarthritis, right knee (principal); I10 Essential (primary) hypertension; I25.10 Atherosclerotic heart disease of native coronary artery without angina pectoris; I48.91 Unspecified atrial fibrillation; E78.00 Pure hypercholesterolemia, unspecified; J45.909 Unspecified asthma, uncomplicated; Z95.1 Presence of aortocoronary bypass graft; Z95.5 Presence of coronary angioplasty implant and graft; I25.2 Old myocardial infarction; Z79.82 Long term (current) use of aspirin; Z79.899 Other long term (current) drug therapy
CPT/HCPCS: 36415; 80048; 85014; 85018; 85049; 88305; 88311; A9270-GY; C1776; J0690; J1100; J2250; J2405; J2704; J2795; J3010; J3490

== ENCOUNTER 2022-03-12 15:14 | Observation (INO) ==
[2022-03-12 15:42] LABS: ABS Eosinophils 0.1 10^3/ul (0-0.6); ABS Lymphocytes 1.4 10^3/ul (1.0-4.8); ABS Monocytes 0.7 10^3/ul (0-0.8); ABS Neutrophils 5.4 10^3/ul (1.5-7.7); Eosinophil % 1.5 %; Hematocrit 45 % (42-52); Hemoglobin 15.2 g/dL (14.0-18.0); Lymphocyte % 18.3 %; Mean Corpuscular HGB Conc 34 g/dL (31-36); Mean Corpuscular Hemoglobin 32 pg (27-31); Mean Corpuscular Volume 96 fL (80-94); Mean Platelet Volume 7.4 fL (7.4-10.4); Nucleated Red Blood Cells % 0.2; Platelet Count 189 10^3/uL (150-450); Red Blood Count 4.72 10^6 /uL (4.18-5.48); Red Cell Distribution Width 14 % (10-15); White Blood Count 7.6 10^3/uL (3.5-10.8)
[2022-03-12 15:50] LABS: INR 1.14 (0.89-1.11)
[2022-03-12 16:23] LABS: Albumin 4.1 g/dL (3.2-5.2); Albumin/Globulin Ratio 1.9 (1-3); Calcium 9.3 mg/dL (8.6-10.3); Globulin 2.2 g/dL (2-4); Potassium 4.4 mmol/L (3.5-5.0); Total Bilirubin 0.7 mg/dL (0.2-1.0); Total Protein 6.3 g/dL (6.4-8.9)
[2022-03-12 16:57] LABS: Magnesium 2.3 mg/dL (1.9-2.7)
[2022-03-12 17:07] LABS: High Sensitivity Troponin 1 Hr 8 pg/mL (<20)
[2022-03-12 17:13] LABS: TSH Ultra Thyroid Stim Horm 2.55 mcIU/mL (0.34-5.60)
[2022-03-12] MEDS ORDERED: Magnesium Sulfate 2 gm BAG 2 GM/50 ML BAG IVPB ONE (17:58)
[2022-03-12] MEDS ORDERED: Mometasone/Formoter 200/5 MDI INH PRN (20:02)
[2022-03-12] MEDS ORDERED: Metoprolol Tartrate 5 mg VIAL 5 ml VIAL (1 mg/ml) IV ONE (22:26)
[2022-03-13] MEDS ORDERED: dilTIAZem 30 MG TAB PO SCH (02:00)
[2022-03-13 06:31] LABS: ABS Eosinophils 0.1 10^3/ul (0-0.6); ABS Lymphocytes 1.4 10^3/ul (1.0-4.8); ABS Monocytes 0.7 10^3/ul (0-0.8); ABS Neutrophils 7.3 10^3/ul (1.5-7.7); Eosinophil % 1.2 %; Hematocrit 45 % (42-52); Hemoglobin 15.3 g/dL (14.0-18.0); Lymphocyte % 14.7 %; Mean Corpuscular HGB Conc 34 g/dL (31-36); Mean Corpuscular Hemoglobin 33 pg (27-31); Mean Corpuscular Volume 96 fL (80-94); Mean Platelet Volume 7.5 fL (7.4-10.4); Platelet Count 182 10^3/uL (150-450); Red Blood Count 4.66 10^6 /uL (4.18-5.48); Red Cell Distribution Width 14 % (10-15); White Blood Count 9.5 10^3/uL (3.5-10.8)
[2022-03-13 06:33] LABS: INR 1.46 (0.89-1.11)
[2022-03-13 07:13] LABS: Calcium 8.8 mg/dL (8.6-10.3); Magnesium 2.3 mg/dL (1.9-2.7); Potassium 4.6 mmol/L (3.5-5.0); eGFR CKD-EPI 76.7 (>60)
[2022-03-13] MEDS: dilTIAZem 30 MG TAB PO SCH ×2 (08:32→13:04)
[2022-03-13 11:51] VITALS: BP 134/82
== END 2022-03-13 13:15 | disposition home or self-care (01) ==
LOC: EDHOLD 15:14 → ED 15:14 → MEDTELE 03-13 00:43
PROVIDERS: ADMIT Internal Medicine; ATTEND Internal Medicine